=== PATIENT | female | born 1970 | race Caucasian/White ===

== ENCOUNTER 2020-07-12 | Emergency (ER) | payer BC ==
[2020-07-12] MEDS ORDERED: ATORVASTATIN CA40 MG PO (12:59)
[2020-07-12] MEDS ORDERED: LOSARTAN POTASS50 MG PO (13:00)
[2020-07-12] MEDS ORDERED: ASPIRIN81 MG PO (13:00)
[2020-07-12] MEDS ORDERED: KLOR-CON M2020 MEQ PO (13:00)
[2020-07-12] MEDS ORDERED: CHLORTHALIDONE25 MG PO (13:01)
[2020-07-12] MEDS ORDERED: TOPROL XL100 MG PO (13:01)
[2020-07-12 13:04] LABS: HEMATOCRIT 37.6 % (37.0-47.0); HEMOGLOBIN 12.8 g/dl (12.0-16.0); IMMATURE GRANULOCYTES 0.4 % (0.0-5.0); MEAN CELL VOLUME 93.3 fL CALC (80.0-100.0); MEAN CORPUSCULAR HGB 31.8 pG CALC (26.0-32.0); NEUT# 7.13 thou/uL (2.00-7.15); RED BLOOD COUNT 4.03 mill/uL (4.20-5.60)
[2020-07-12 13:16] LABS: ALBUMIN 4.4 g/dL (3.2-5.0); ALKALINE PHOSPHATASE 75 u/l (38-126); ANION GAP 17 (6-22 (CALC)); BILIRUBIN, TOTAL 0.6 mg/dL (0.0-1.4); BUN 19 mg/dL (7-17); BUN/CREATININE RATIO 16 (12-20 (CALC)); CARBON DIOXIDE 25 mmol/l (22-30); CHLORIDE 98 mmol/l (95-108); CREATININE 1.2 mg/dL (0.5-1.0); GFR 48 ML/MIN (>=60 (CALC)); GFR FOR AFR.AMER. 58 ML/MIN (>=60 (CALC)); POTASSIUM 3.3 mmol/l (3.5-5.1); SGOT/AST 38 u/l (14-36); SODIUM 137 mmol/l (137-146); TOTAL PROTEIN 7.3 g/dL (6.3-8.2)
[2020-07-12 13:20] LABS: ACT PARTIAL THROMBO TIME 23.6 SECONDS (20.0-32.5); PROTHROMBIN TIME 10.5 SECONDS (9.0-12.5)
== END 2020-07-12 16:05 | disposition home or self-care (01) | DRG 316 ==
DX: I95.9 Hypotension, unspecified (principal); E86.0 Dehydration; I10 Essential (primary) hypertension; E78.5 Hyperlipidemia, unspecified; F17.210 Nicotine dependence, cigarettes, uncomplicated